=== PATIENT | male | born 1945 ===

== ENCOUNTER 2024-10-11 14:09 | Outpatient (AMB) | payer MEDICARE, MEDICAID, SELFPAY ==
--- NOTE | 2024-10-11 14:23 | A.OFFVIS_ITS ---
Intake Visit Reasons: 6m Accompanied by: Friend Allergies No Known Allergies Allergy (Verified 10/11/24 14:27) Medication List - Last Reconciled 10/11/24 by Clara Moscoso CNP carbidopa-levodopa 25-100 mg (Sinemet) 1 tab PO .six times a day glipizide 5 mg PO DAILY lisinopril 20 mg PO DAILY metformin 500 mg PO DAILY metoprolol succinate ER 25 mg PO DAILY HPI Comments Details: He was doing okay. He was using walker at home with supervision, otherwise using wheelchair. He fell about 2 months ago outside when using walker. [facility] was helping to manage medications. He was taking carbidopa-levodopa 25-100mg 1 tablet six times a day. No significant tremor. No difficulty eating, drinking, or swallowing. Sleep was okay. Memory was okay. Balance not so good, history of falls even when using walker. Not walking as much after fall in 12/2023. Had some trouble turning in bed and some more tremor in right hand that would come and go. Voice was bit softer and sometimes people had trouble understanding him. In the past, had occasional minor falls while using walker. Fell and broke right hip in 12/2021 which required surgery. Occasional tremor. Not driving. Right shoulder pain subsided, had shoulder fx in 03/2019, no surgery was done. Speech improved. Noticed tremors in right upper extremity at rest at the end of 2018. Gait changed and shuffling more, loses balance. Cannot talk as loud or clear as he did. [facility] Medical History (Updated 10/11/24 @ 14:27 by Clara Moscoso CNP) Hypertension Diabetes mellitus Parkinson disease Review of Systems Const Denies chills, Denies daytime sleepiness, Denies difficulty sleeping, Denies fatigue, Denies fever(s), Reports frequent falls, Denies headache(s), Denies increased appetite, Denies poor appetite, Denies snoring, Denies weakness, Denies weight gain and Denies weight loss Eyes Denies loss of vision ENT Denies vertigo, Denies dizziness, Denies headache(s) and Denies neck pain Card Denies chest pain at rest, Denies chest pain with activity, Denies syncope, Denies leg edema, Denies palpitations, Denies dyspnea and Denies dyspnea on exertion Resp Denies cough, Denies dyspnea, Denies dyspnea on exertion and Denies snoring GI Denies abdominal pain, Denies constipation, Denies heartburn, Denies diarrhea and Denies nausea Denies urinary frequency, Denies urinary incontinence and Denies urinary urgency Musc Reports abnormal gait, Denies back pain, Denies myalgias, Denies arthralgias, Denies neck pain, Denies numbness and Denies tingling Neuro Reports abnormal gait, Denies vertigo, Denies dizziness, Denies syncope, Reports frequent falls, Denies headache(s), Denies lack of coordination, Denies loss of vision, Denies memory loss, Denies numbness, Denies Other visual disturbances, Denies restless legs, Denies seizure-like activity, Denies tingling, Denies paresthesias, Reports tremor(s) and Denies weakness Psych Denies anxiety, Reports depression, Denies auditory hallucinations, Denies memory loss and Denies visual hallucinations Endo Denies fatigue and Denies palpitations Physical Exam Const Other: General Appearance:? normal, in no acute distress. Heart:? S1, S2 normal, no murmurs. Lungs:? clear anteriorly and posteriorly. Musculoskeletal:? normal. Extremities:? no edema. Psych:? alert, oriented, cognitive function intact, cooperative with exam. Neuro Other: Abnormal Neurological Findings:?In wheelchair. No resting tremor of RUE at the wrist and fingers. Mild increased tone with cog wheeling in BUE. Right shoulder with no abduction due to torn rotator cuff Mental Status: alert and oriented X 3. Normal attention, orientation, memory, and affect. Cranial Nerves: Pupils are equal, round, and reactive to light. External ocular muscles are intact. Visual phillips are full, no ptosis. Face is symmetrical, no facial weakness or droop. Facial sensations are normal. Tongue protrudes in midline. Palate elevates symmetrically. Shoulder shrugging is normal Motor Examination: As above, otherwise normal muscle tone, bulk and strength. No atrophy or fasciculations. No drift of the extended upper extremities. DTR 2+. Plantars are flexor. Straight Leg Raisin degrees. Sensory Exam: Normal light touch, temperature, pinprick, vibration, and joint- position sensations. Rhomberg sign is absent. Coordination: No ataxia. No titubation. Vzdiun-bz-dgis, uboc-[id number]-[id number] test, and rapid alternating movements were normal. Gait Exam: In wheelchair. Cerebellar Signs: Tiiula-wc-egke and juqr-[id number]-mjsv is normal. No dysdiadochokinesia. Extrapyramidal System: As above. Speech: Normal. No dysphasia or dysarthria. Assessment & Plan Assessment & Plan (1) Parkinson disease: Code(s): G20.A1 - Parkinson's disease without dyskinesia, without mention of fluctuations Category: Medical Qualifiers: Dyskinesia presence: unspecified whether dyskinesia Fluctuating manifestations: unspecified whether manifestations fluctuate Qualified Code(s): G20.A1 - Parkinson's disease without dyskinesia, without mention of fluctuations Plan: Continue carbidopa-levodopa 25-100mg 1 tablet six times a day. Coding Level of Care Code Est Pt Level 4 (83707) Diagnoses Parkinson's disease, unspecified whether dyskinesia present, unspecified whether manifestations fluctuate G20.A1 Dyskinesia presence: unspecified whether dyskinesia Fluctuating manifestations: unspecified whether manifestations fluctuate
== END 2024-10-11 14:36 | disposition home or self-care (01) ==
PROVIDERS: PCP Family Medicine; Referring Provider Family Medicine; Visit Provider Registered Nurse
DX: G20.A1 Parkinson's disease without dyskinesia, without mention of fluctuations (principal)
CPT/HCPCS: 99214

== ENCOUNTER → 2024-10-11 14:09 | Outpatient (BNVA) | payer MEDICARE, MEDICAID, SELFPAY | PROVIDERS: PCP Family Medicine; Referring Provider Family Medicine; Visit Provider Registered Nurse | DX: G20.A1 Parkinson's disease without dyskinesia, without mention of fluctuations (principal); Z79.84 Long term (current) use of oral hypoglycemic drugs; Z79.899 Other long term (current) drug therapy | CPT/HCPCS: 99212 ==